=== PATIENT | male | born 1995 | race Asian ===

== ENCOUNTER 2017-03-30 22:27 | Emergency (ER) | payer SELFPAY ==
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
[2017-03-30] MEDS ORDERED: IBUPROFEN 200 MG TAB PO ONE (22:34)
[2017-03-30 22:37] VITALS: BP 137/89; PULSE 98; RESP 16; TEMP 98.2; O2SAT 95
== END 2017-03-30 23:23 | disposition home or self-care (01) ==
LOC: EDUNIT# → EDBD
DX: S09.93XA Unspecified injury of face, initial encounter (principal); F17.200 Nicotine dependence, unspecified, uncomplicated; Y04.8XXA Assault by other bodily force, initial encounter

== ENCOUNTER 2017-09-27 08:50 | Emergency (ER) | payer SELFPAY ==
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
[2017-09-27 09:03] VITALS: RESP 16; TEMP 98.2
[2017-09-27] MEDS ORDERED: LIDOCAINE 5% 1 EA PATCH TD ONE (09:03)
[2017-09-27 10:14] VITALS: BP 138/85; PULSE 99; O2SAT 97
[2017-09-27] MEDS ORDERED: PATCH REMOVAL 1 EA PATCH TD SCH ×2 (21:00)
[2017-09-28] MEDS ORDERED: LIDOCAINE 5% 1 EA PATCH TD SCH (09:00)
== END 2017-09-27 10:13 | disposition home or self-care (01) ==
LOC: EDUNIT#
DX: S20.212A Contusion of left front wall of thorax, initial encounter (principal); F17.200 Nicotine dependence, unspecified, uncomplicated; Y08.89XA Assault by other specified means, initial encounter

== ENCOUNTER 2017-10-10 14:13 | Inpatient (IN) | payer BC ==
--- NOTE | 2017-10-10 14:24 | EDPHY ---
H & P HPI/ROS: CHIEF COMPLAINT: Fever, cough HISTORY OF PRESENT ILLNESS: This patient is a homeless 21 year-old male with history of methamphetamine addiction presenting with fever and cough. He is currently homeless and states "I haven't slept in 8 days". His last methamphetamine use was IV, four days ago. He states he does want to get clean. He endorses current fever and cough. He has been having chills. He has received a flu shot this year. He denies vomiting, diarrhea, chest pain, shortness of breath, urinary complaints, or other associated symptoms. REVIEW OF SYSTEMS: A ten point review of systems was performed and is negative with the exception of the items mentioned in the HPI. Past medical history: ADHD (Formerly on Adderall). Past surgical history: ORIF left wrist. Family history: Noncontributory. Social history: Currently homeless. History of methamphetamine abuse since age 13. Daily tobacco use. Disheveled. Poor personal hygiene. General Appearance: Alert. Vital signs reviewed. Febrile 39.2, BP 152/87, HR 109, RR 22. Eyes: Bilateral conjunctival injection. Pupils equal and round, no discharge. Anicteric. ENT, Mouth: Oropharyngeal erythema, no edema. Mucous membranes are moist. Teeth in good repair. Neck: No lymphadenopathy, supple. No meningeal signs. Respiratory: Lungs are clear to auscultation; no wheezes, rales, or rhonchi. Cardiovascular: Regular tachycardia; no murmur, rub, or gallop. Gastrointestinal: Diffuse abdominal tenderness, no guarding. Abdomen is soft, no masses or organomegaly, bowel sounds normal. Skin: Warm and dry, no rashes on exposed skin, normal color. No abscesses or cellulitis. Pulses: Brisk capillary refill. Back: Nontender to palpation over the thoracolumbar spine. No CVAT. Extremities: No lower extremity edema, no calf tenderness or swelling. Neurological: Alert and oriented. Moving all four extremities easily and equally. Psychiatric: Normal affect. - Medical/Surgical History Hx Asthma: No Hx Chronic Respiratory Disease: No Hx Diabetes: No Hx Cardiac Disease: No Hx Renal Disease: No Hx Cirrhosis: No Hx Alcoholism: No Hx HIV/AIDS: No Hx Splenectomy or Spleen Trauma: No Other PMH: ADD - Social History Smoking Status: Current every day smoker Constitutional: Initial Vital Signs Temperature (C) 39.2 C H 10/10/17 14:21 Heart Rate 109 H 10/10/17 14:21 Respiratory Rate 22 H 10/10/17 14:21 Blood Pressure 152/87 H 10/10/17 14:21 O2 Sat (%) 94 10/10/17 14:21 O2 Delivery Mode Room Air Allergies/Adverse Reactions: No Known Allergies Allergy (Verified 10/10/17 16:43) Home Medications: Medication Instructions Recorded NK [No Known Home Meds] 10/10/17 Medical Decision Making - Diagnostics EKG Interpretation: The 12 lead EKG was interpreted by myself. See hard copy and/or "tracemaster" electronic copy for interpretation. Sinus tachycardia, rate 116. ED Course/Re-evaluation: 21 year old male with history of methamphetamine abuse presents with fever and cough. He is febrile (39.2) and tachycardic (109). IV established. Plan for EKG , chest x-ray, labs including CBC, BMP, lactic acid, blood cultures, and flu swab. Administered 1000mg PO acetaminophen for fever reduction. He meets sepsis criteria. Flu swab positive for influenza A. He is mildly hyponatremic. Lactate low. He does not have severe sepsis. 15:[address] Spoke with [address]ist service. Dr. Simmons accepts admission for influenza , methamphetamine withdrawal. He will be started on Tamiflu. I do not think that he has pneumonia--lungs are clear, he is not hypoxic. CXR shows airways disease, atalectatis vs infiltrate. Differential Diagnosis: I considered a ddx that includes but is not limited to influenza, pneumonia, other infections such as UTI/pharyngitis, methamphetamine withdrawal. - Data Points Laboratory Results: Laboratory Results 10/10/17 14:10 10/10/17 14:10 Medications Given: Acetaminophen (Tylenol) 1,000 mg PO Q8 SEBASTIAN Stop: 04/08/18 19:59 Last Admin: 10/11/17 05:15 Dose: 1,000 mg Ibuprofen (Motrin) 400 mg PO Q4HRS PRN PRN Reason: Pain, Inflammatory Stop: 04/08/18 16:07 Last Admin: 10/11/17 01:36 Dose: 400 mg Nicotine (Nicoderm Cq) 21 mg TD DAILY SEBASTIAN Stop: 04/08/18 16:14 Last Admin: 10/11/17 08:27 Dose: 21 mg Oseltamivir Phosphate (Tamiflu) 75 mg PO DAILY SEBASTIAN Stop: 10/19/17 09:01 Last Admin: 10/11/17 08:27 Dose: 75 mg Temazepam (Restoril) 15 mg PO HS PRN PRN Reason: Sleep/Insomnia Stop: 04/08/18 16:07 Last Admin: 10/11/17 01:36 Dose: 15 mg Discontinued Medications Acetaminophen (Tylenol) 1,000 mg PO EDNOW ONE Stop: 10/10/17 14:43 Last Admin: 10/10/17 14:54 Dose: 1,000 mg Sodium Chloride (Ns) 1,000 mls @ 0 mls/hr IV ONCE ONE; Wide Open PRN Reason: Protocol Stop: 10/10/17 14:27 Last Admin: 10/10/17 14:33 Dose: 1,000 mls Sodium Chloride (Ns) 1,000 mls @ 0 mls/hr IV ONCE ONE; Wide Open PRN Reason: Protocol Stop: 10/10/17 14:50 Last Admin: 10/10/17 14:50 Dose: 1,000 mls Sodium Chloride (Ns) 1,000 mls @ 200 mls/hr IV CONT SEBASTIAN Stop: 10/10/17 18:14 Last Admin: 10/10/17 17:08 Dose: 1,000 mls Departure - Departure Disposition: [facility] Clinical Impression: Influenza A, Stimulant withdrawal Condition: Fair Report Scribed for: Carey Grajeda Report Scribed by: Екатерина Campbell Date of Report: 10/10/17 Time of Report: 14:32 Physician Review and Approval Statement: 10/10/17 14:23 Portions of this note were transcribed by the medical claims representative. I, Dr. Carey Grajeda, personally performed the history, physical exam, and medical decision- making; and confirmed the accuracy of the information in the transcribed note.
[2017-10-10] MEDS ORDERED: NS 1,000 ML IV ONE ×2 (14:26→14:49)
--- NOTE | 2017-10-10 14:35 | CPEKG ---
Heart Rate: 116 RR Interval: 517 P-R Interval: 116 QRSD Interval: 74 QT Interval: 296 QTC Interval: 412 P [place]: 45 QRS [place]: 65 T Wave [place]: 70 EKG Severity - OTHERWISE NORMAL ECG - EKG Impression: SINUS TACHYCARDIA Electronically Signed By: Carey Grajeda 10-Oct-2017 20:37:49
[2017-10-10] MEDS ORDERED: ACETAMINOPHEN 500 MG TAB PO ONE (14:42)
[2017-10-10 14:46] LABS: PLATELET COUNT 228 10^3/uL (150-400)
[2017-10-10] MEDS ORDERED: TEMAZEPAM 15 MG CAP PO PRN (16:08)
[2017-10-10] MEDS ORDERED: ALBUTEROL 3 ML DEYVIAL IH PRN (16:08)
[2017-10-10] MEDS ORDERED: ONDANSETRON DISINTEGRATING 4 MG TAB PO PRN (16:08)
[2017-10-10] MEDS ORDERED: NS 1,000 ML IV SCH (16:15)
--- NOTE | 2017-10-10 16:25 | ASMTCMCOM ---
CM Note CM Note Notes: I met with patient in the ER prior to admission/observation to provide treatment resources. Patient is pleasant, polite, and in touch with family-specifically his mother-in [place]. He tells me that he reached out to his mother this morning to ask if he could go home ([place]). He verbalizes desire to "stop using" and that he wants to go to rehab. I have provided patient with local resorces for harm reduction ( [facility] ), as well as detox/rehab, and crisis ([facility]) contacts. Patient promises me that he is trying to reach his mother again to inform her of his admission to the hospital. CM available to provide further resources to patient and/or assist with referrals and D/C planning Date Signed: 10/10/2017 04:25 PM Electronically Signed By:Arely Estrada RN
--- NOTE | 2017-10-10 16:38 | GHP ---
[f rep st] HISTORY AND PHYSICAL DATE OF ADMISSION: 10/10/2017 The patient is a 21-year-old gentleman with about an 8-year history of methamphetamine addiction who presents with fever, chills for a couple of days. He says he has not eaten or slept in 4 days. He i s currently homeless with meth use. He has not used meth in that time. He expresses a desire to get clean. He did not get a flu shot this year. He does smoke cigarettes. He denied nausea, vomiting, diarrhea to the ER, but he told me he has had some diarrhea and vomiting. He has myalgias, fever, a nd cough. He is coughing frequently as well as having chills. REVIEW OF SYSTEMS: Complete 10-point review of systems conducted, negative except as noted in the HP I. PAST MEDICAL HISTORY: ADHD. SURGICAL HISTORY: He had ORIF of his left wrist. FAMILY HISTORY: Reviewed and unremarkable. SOCIAL HISTORY: Homeless. He smokes cigarettes. Methamphetamine use since age 13. ALLERGIES: No known drug allergies. HOME MEDICATIONS: None. PHYSICAL EXAMINATION: VITAL SIGNS: Temp 39.2, blood pressure 152/87, pulse 109, breathing 20 times a minute, 94% on room air. GENERAL: Disheveled, no acute distress. HEENT: Sclerae anicteric. Hetal pharynx clear. Mucous membranes are moist. NECK: Supple without lymphadenopathy or JVD. LUNGS: C lear to auscultation bilaterally. HEART: S1, S2. ABDOMEN: Soft, nontender, nondistended. MUSCULO SKELETAL: Lower extremities without edema. Calves nontender. SKIN: Without rash. NEUROLOGIC: Gr ossly nonfocal. LABORATORIES: Influenza positive for influenza A. Sodium 131, potassium 4.2, chloride 95, bicarb 21 , BUN 18, creatinine 0.9. Venous lactate is 0.6. CBC: White count 9, hematocrit 45, platelets 228, 000. Chest x-ray interpreted by me shows no acute cardiopulmonary disease. EKG, interpreted by me, shows sinus tach at 116 with normal axis and intervals, no ST or T-wave de la garza es. I discussed the case with Dr. Carey Grajeda. ASSESSMENT/PLAN: A 21-year-old gentleman, methamphetamine addiction, here with influenza and fever. 1. Influenza. Start Tamiflu. 2. Hyponatremia. This is likely poor p.o. intake. Will hydrate and follow. I am not worried about the rate of correction given his relatively mild rate. 3. Fever. This is presumably secondary to influenza. Will follow. 4. Cough with wheezing. Will start albuterol nebulizers. 5. Prophylaxis, low risk. Ambulation. 6. Methamphetamine addiction. Will treat symptomatically. DISPOSITION: Observation status. /[id number]/MODL
[2017-10-10] MEDS: OSELTAMIVIR PHOSPHATE 75 MG CAP PO SCH (17:08)
[2017-10-10] MEDS: NICOTINE 21 MG/24 HR PATCH TD SCH (17:09)
[2017-10-10] MEDS: ACETAMINOPHEN 500 MG TAB PO SCH (20:04)
[2017-10-10] MEDS ORDERED: ACETAMINOPHEN 325 MG TAB PO SCH (22:00)
[2017-10-11] MEDS: IBUPROFEN 200 MG TAB PO PRN ×3 (01:36→20:30)
[2017-10-11] MEDS: ACETAMINOPHEN 500 MG TAB PO SCH ×3 (05:15→22:20)
[2017-10-11] MEDS: OSELTAMIVIR PHOSPHATE 75 MG CAP PO SCH ×2 (08:27→18:34)
[2017-10-11] MEDS: NICOTINE 21 MG/24 HR PATCH TD SCH (08:27)
[2017-10-11] MEDS: ONDANSETRON 4 MG/2 ML VIAL IVP PRN ×2 (11:26→16:47)
--- NOTE | 2017-10-11 12:13 | ASMTCMCOM ---
CM Note CM Note Notes: Chart reviewed. Attempted to see patient who is sleeping He states he wants to go home to [place]. He gives med verbal consent to speak to hims mother.. She is anxious to get him home and help him find treatment for his addiction. She is able to purchase a [employer]nd bus ticket from [place] to [place]. She is concerned because he has no photo ID nor money to get to [place]. I will see if CM can provide bus transportation to [place] and call her back. CM to follow. Date Signed: 10/11/2017 12:13 PM Electronically Signed By:Genesis Moe RN
--- NOTE | 2017-10-11 13:58 | ASMTCMCOM ---
CM Note CM Note Notes: Patient's Mother Nikky ([phone]) is ready to bring son home via [employer] when medically stable. Conferred with other CM team and we can provide regional bus pass to [place]. He will not need photo ID per [employer] website but just password and confirmation number. As he has no phone we will need to help orchestrate timing of his dc to get him to the [employer] [facility] with the appropriate password/confirmation number. CM to follow. Date Signed: 10/11/2017 01:57 PM Electronically Signed By:Genesis Moe RN
[2017-10-11] MEDS ORDERED: guaiFENesin/CODEINE PHOS 10 ML UDCUP PO PRN (15:56)
[2017-10-11] MEDS ORDERED: LORazepam 2 MG/ML INJ IVP PRN (15:56)
--- NOTE | 2017-10-11 16:01 | HOSPPROG ---
Hospitalist Progress Note Assessment/Plan: 21 yo male admitted with acute influenza, respiratory distress, hypoxemia, and known IV methamphetamie abuse. Last use was 4 days [employer]. Patient reports withdrawal of shaking, weakness, nausea, diarrhea, and some seizure. No known seizure disorder otherwise. H/o childhood asthma but no use of inhalers now. + tobacco use. Homeless, from [facility]. Mother Nikky Mccollum [phone] Subjective: reports persistent cough; last used meth 4 days ago; feels very weak , cough nonproductive; Objective: Vital Signs Temp Pulse Resp BP Pulse Ox 37.1 C 97 18 118/61 94 10/11/17 15:26 10/11/17 15:26 10/11/17 15:26 10/11/17 15:26 10/11/17 15:26 Laboratory Results 10/11/17 04:54 10/10/17 10/11/17 10/12/17 05:59 05:59 05:59 Intake Total 3070 1592 Output Total 1600 Balance 3070 -8 - Time Spent With Patient Time Spent with Patient: greater than 35 minutes Time Spent with Patient: Greater than 35 minutes spent on this patients care, greater than 50% of time spent counseling, educating, and coordinating care regarding the above mentioned plan. - Pending Discharge Pending Discharge Within 24 Hours: No Pending Discharge Within 48 Hours: Yes Pending Discharge Date: 10/13/17 Pending Discharge Time: 11:00 - Physical Exam Constitutional: chronically ill appearing, other (acute coughing) Eyes: PERRL, anicteric sclera Ears, Nose, Mouth, Throat: moist mucous membranes, hearing normal Cardiovascular: regular rate and rhythym, no murmur, rub, or gallop Respiratory: bronchial breath sounds, rhonchi Gastrointestinal: normoactive bowel sounds, soft, non-tender abdomen, no palpable masses Genitourinary: no bladder fullness Skin: warm, other (venopuncture sites on left arm from IV drug use; no cellulits ) Musculoskeletal: generalized weakness ICD10 Worksheet Patient Problems: Problems Problem Status Onset Influenza A Acute Stimulant withdrawal Acute
--- NOTE | 2017-10-11 16:22 | PDMN ---
Medical Necessity Medical necessity: C/M review: Patient meets INPT criteria under [facility] [id number] Substance related disorders: Acute and persistent influenza A, hypoxia, respiratory distress, cough, methamphetamine withdrawal, requiring IV fluids, ongoing Duonebs QID, pulse oximetry, supplemental O2 as needed, IV Ativan as needed, close monitoring of withdrawal symptoms, comorbid history of known IV methamphetamine abuse, last dose 4 days prior to this admission. MD anticipates > 2 MN LOS for ongoing med nec for eval and TX of above.
[2017-10-11] MEDS: IPRATROPIUM/ALBUTEROL 3 ML DEYVIAL IH SCH ×2 (17:11→22:00)
[2017-10-11] MEDS: NS W/ 20 KCl/L 1,000 ML IV SCH (18:34)
[2017-10-12] MEDS: NS W/ 20 KCl/L 1,000 ML IV SCH (03:25)
[2017-10-12 04:43] LABS: HIV TYPE 1 AND 2 NEGATIVE (NEGATIVE)
[2017-10-12] MEDS: ACETAMINOPHEN 500 MG TAB PO SCH ×2 (05:22→13:15)
[2017-10-12] MEDS: IPRATROPIUM/ALBUTEROL 3 ML DEYVIAL IH SCH ×2 (05:40→11:19)
[2017-10-12] MEDS: NICOTINE 21 MG/24 HR PATCH TD SCH (08:10)
[2017-10-12 08:23] VITALS: BP 127/68; TEMP 97.9
[2017-10-12] MEDS: OSELTAMIVIR PHOSPHATE 75 MG CAP PO SCH (09:35)
[2017-10-12 11:22] VITALS: PULSE 70; RESP 14; O2SAT 94
[2017-10-12] MEDS: IBUPROFEN 200 MG TAB PO PRN (13:15)
--- NOTE | 2017-10-12 14:51 | GDS ---
[f rep st] DISCHARGE SUMMARY DISCHARGE DIAGNOSES: 1. Influenza. 2. Respiratory distress. 3. Acute hypoxemia. 4. History of IV methamphetamine abuse. PHYSICAL EXAMINATION: GENERAL: The patient is alert. VITAL SIGNS: Afebrile at 36.6, pulse 75, res piratory rate is 12, blood pressure is 127/68. He is saturating 93% on room air. I have seen and evaluated patient on the day of discharge. HOSPITAL COURSE: The patient is a 21-year-old male who presented to the emergency room with complain ts of shortness of breath and hypoxemia. He was evaluated and diagnosed with influenza. During this hospitalization, he received supportive care. He has responded well. He is eating and tolerating a regular diet. He will be discharged from the hospital to return to [place] where his mother resides. Case Management has been involved at length with regard to the patient's disposition. Inst ructions have been provided to him, and several bus transfers in order for him to get the [facility] have been provided. The patient will return to [place] and follow up in the outpatient setting as needed. DISCHARGE MEDICATIONS: Please refer to EMR form. FOLLOWUP: Followup will be in [place]. He has been recommended to seek help in counseling for his met hamphetamine use. I spent greater than 35 minutes in the care, coordination, and management of patient's disposition. /[id number]/MODL
--- NOTE | 2017-10-13 09:44 | ASDISCHSUM ---
Discharge Information Plan Status:Home with No Needs Medically Cleared to Leave:10/11/2017 Discharge Date:10/12/2017 02:00 PM CM D/C Disposition: ADT D/C Disposition:Home, Routine, Self-Care Projected Discharge Date:10/12/2017 12:00 AM Transportation at D/C: Discharge Delay Reason: Follow-Up Date:10/12/2017 12:00 AM Discharge Slot: Final Diagnosis: Placement Information Patient Contact Information Contact Name:LEIDY Relationship:Mother Address: Work Phone: City: [facility] Phone: State/Zip Code:[place] Email: Financial Information Financial Class:HMO and PPO Plans Primary Plan Desc:[facility] P[facility] Primary Plan Number:[id number] Secondary Plan Desc: Secondary Plan Number: Assessment Information LACE LACE Acuity / Level of Care Answers: Was the patient admitted to hospital via the emergency department? Yes: Emergency dept visits in Answers: 2 last 6 months Score: 5 Date Signed: 10/10/2017 03:53 PM Electronically Signed By:Arely Estrada RN [facility] Progress Note CM Note CM Note Notes: I met with patient in the ER prior to admission/observation to provide treatment resources. Patient is pleasant, polite, and in touch with family-specifically his mother-in [place]. He tells me that he reached out to his mother this morning to ask if he could go home ([place]). He verbalizes desire to "stop using" and that he wants to go to rehab. I have provided patient with local resorces for harm reduction ( [facility] ), as well as detox/rehab, and crisis ([facility]) contacts. Patient promises me that he is trying to reach his mother again to inform her of his admission to the hospital. CM available to provide further resources to patient and/or assist with referrals and D/C planning Date Signed: 10/10/2017 04:25 PM Electronically Signed By:Arely Estrada RN [facility] CM Progress Note CM Note CM Note Notes: Chart reviewed. Attempted to see patient who is sleeping He states he wants to go home to [place]. He gives med verbal consent to speak to hims mother.. She is anxious to get him home and help him find treatment for his addiction. She is able to purchase a [employer] bus ticket from [place] to [place]. She is concerned because he has no photo ID nor money to get to [place]. I will see if CM can provide bus transportation to [place] and call her back. CM to follow. Date Signed: 10/11/2017 12:13 PM Electronically Signed By:Genesis Moe RN [facility] Progress Note CM Note CM Note Notes: Patient's Mother Nikky ([phone]) is ready to bring son home via [employer] when medically stable. Conferred with other CM team and we can provide regional bus pass to [place]. He will not need photo ID per [employer] website but just password and confirmation number. As he has no phone we will need to help orchestrate timing of his dc to get him to the [facility] with the appropriate password/confirmation number. CM to follow. Date Signed: 10/11/2017 01:57 PM Electronically Signed By:Genesis Moe RN Case Management Discharge Plan Note Case Management Discharge Discharge Order Complete? Answers: Yes Patient to Obtain Answers: Independently Medications Transportation Arranged Answers: Taxi - Voucher Family Notified Answers: Yes Notes: Nikky, mother [phone] Discharge Comments Notes: Spoke with patient about his returning to [place] and entering rehab. Patient has talked to his mother and wants to do this. Spoke with patient's mother, Nikky to let her know patient is d/cing today. She purchased him a ticket from [place] to [place] and provided us with the confirmation # and the passcode. Made arrangements for a taxi to take patient to the [facility] where he will catch his bus to [place]. Wrote out the instructions step by step for patient so he can make the bus transfers and get to the [facility] in [place]. Faxed these instructions to patient's mother so if patient gets confused he can call his mom and she can walk him through it. Patient was provided a regional bus pass to use to get to [place]. He did not have any medication needs. Patient d/c'ed today. Date Signed: 10/12/2017 02:30 PM Electronically Signed By:Christal Amaral LCSW Intervention Information
== END 2017-10-12 14:00 | disposition home or self-care (01) | DRG 194 ==
LOC: EDUNIT# → INTOOBSV 15:42 → F3E 16:14 → OBSVTOIN 10-11 16:10
PROVIDERS: ADMIT Internal Medicine; ATTEND Family Medicine
PROC: 3E0337Z Introduction of Electrolytic and Water Balance Substance into Peripheral Vein, Percutaneous Approach (ICD-10-PCS; principal; 2017-10-11)
DX: J10.1 Influenza due to other identified influenza virus with other respiratory manifestations (principal); R06.03 Acute respiratory distress; R09.02 Hypoxemia; E87.1 Hypo-osmolality and hyponatremia; E86.9 Volume depletion, unspecified; F15.23 Other stimulant dependence with withdrawal; F17.210 Nicotine dependence, cigarettes, uncomplicated; F90.9 Attention-deficit hyperactivity disorder, unspecified type; Z59.0 Homelessness
CPT/HCPCS: G0378; J2405